=== PATIENT | female | born 1980 | race Caucasian/White ===

== ENCOUNTER 2017-05-10 21:01 | Emergency (ER) | payer MEDICAID ==
[~2017-05-10] VITALS: Ht 149.9 cm; Wt 52.0 kg
[~2017-05-10 21:01] MED LIST: ACET-890 PO; CARB100O PEG; DIVA125T9 PEG; HYDR473S49 PEG; LORA0.5T PO
[2017-05-10] MEDS ORDERED: ondansetron/PF 4mg/2ml inj IV ONE (21:25)
[2017-05-10] MEDS ORDERED: LORazepam 2 mg/ml vial IV ONE (21:25)
[2017-05-10] MEDS ORDERED: levetiracetam inj 1,000 MG in normal saline 100ml IV soln 90 ML IV STA (21:50)
[2017-05-10] MEDS ORDERED: LEVOCARNITINE IV STA (21:52)
[2017-05-10] MEDS ORDERED: NORMAL SALINE IV STA (21:52)
[2017-05-10] MEDS ORDERED: lactulose 20gm/30ml cup PO ONE (21:55)
[2017-05-10 22:23] LABS: BASOPHILS # (AUTO) 0.1 X10'3 (0-0.2); BASOPHILS % (AUTO) 1.2 % (0-1); EOSINOPHILS # (AUTO) 0.1 X10'3 (0-0.9); EOSINOPHILS % (AUTO) 1.7 % (0-6); HEMATOCRIT 38.2 % (35.0-45.0); HEMOGLOBIN 13.4 g/dl (12.0-16.0); LYMPHOCYTES % (AUTO) 42.4 % (21-51); MEAN CORPUSCULAR HEMOGLOBIN 32.2 PG (27.0-31.0); MEAN CORPUSCULAR HGB CONC 35.1 % (33.0-36.5); MEAN CORPUSCULAR VOLUME 91.8 FL (78-98); MEAN PLATELET VOLUME 9.1 FL (7.4-10.4); MONOCYTES # (AUTO) 0.5 X10'3 (0-0.9); MONOCYTES % (AUTO) 10.9 % (2-12); NEUTROPHILS # (AUTO) 2.1 X10'3 (1.8-7.7); NEUTROPHILS % (AUTO) 43.8 % (42-75); PLATELET COUNT 197 X10'3 (140-440); RED BLOOD COUNT 4.16 X10'6 (4.20-5.60); RED CELL DISTRIBUTION WIDTH 13.6 % (11.5-14.5); WHITE BLOOD COUNT 4.7 X10'3 (4.5-11.0)
[2017-05-10] MEDS ORDERED: levetiracetam 100mg/ml inj IV ONE (22:28)
[2017-05-10] MEDS ORDERED: LEVOCARNITINE 200 MG/ML IV ONE ×2 (22:29→22:37)
[2017-05-10 22:40] LABS: PROTHROMBIN TIME 10.7 SECONDS (9.0-12.0)
[2017-05-10 22:41] LABS: ALANINE AMINOTRANSFERASE 23 U/L (12-78); ALBUMIN 2.6 G/DL (3.4-5.0); ALBUMIN/GLOBULIN RATIO 0.7 (1.1-1.5); ALKALINE PHOSPHATASE 76 IU/L (46-116); ANION GAP 4 (8-16); ASPARTATE AMINO TRANSFERASE 24 U/L (10-37); BILIRUBIN,TOTAL 0.2 MG/DL (0.1-1.0); BLOOD UREA NITROGEN 12 MG/DL (7-18); BUN/CREATININE RATIO 21.8 (6.6-38.0); CALCIUM 8.3 MG/DL (8.5-10.1); CHLORIDE 99 MMOL/L (99-107); CREATININE 0.55 MG/DL (0.40-0.90); GLUCOSE 110 MG/DL (70-104); MAGNESIUM 2.1 MG/DL (1.5-2.4); POTASSIUM 4.4 MMOL/L (3.5-5.1); SODIUM 134 MMOL/L (135-145); TOTAL PROTEIN 6.4 G/DL (6.4-8.2); eGFR > 90 ML/MIN
[2017-05-11] MEDS ORDERED: NORMAL SALINE IV SCH ×2
[2017-05-11] MEDS ORDERED: LEVOCARNITINE IV SCH ×2
[2017-05-11] MEDS ORDERED: NS IV ONE (02:30)
[2017-05-11] MEDS ORDERED: VALPROATE SODIUM IV ONE (02:30)
[2017-05-11 02:36] LABS: VALPROATE 79 UG/ML (50-100)
[2017-05-11] MEDS ORDERED: ONDA4TAB12 PO (03:33)
[2017-05-11 03:36] VITALS: BP 104/73
== END 2017-05-11 03:39 | disposition home or self-care (01) ==
LOC: ER 21:02
DX: R11.2 Nausea with vomiting, unspecified (principal); R56.9 Unspecified convulsions; Z99.3 Dependence on wheelchair; Z88.0 Allergy status to penicillin; Z79.899 Other long term (current) drug therapy
CPT/HCPCS: 36415; 71045; 80053; 80164; 82140; 83735; 85025; 85610; 93005; 96365; 96367; 96368; 96375; 99285; J1953; J2060; J2405; J7030

== ENCOUNTER 2018-01-12 11:19 | Outpatient (CLI) | payer MEDICAID ==
[~2018-01-12 11:19] MED LIST changes: +ONDA4TAB12 PO
== END 2018-01-12 23:59 | disposition home or self-care (01) ==
LOC: RAD 11:19
PROVIDERS: ATTEND Psychiatry & Neurology Neurology
DX: G40.909 Epilepsy, unspecified, not intractable, without status epilepticus (principal); R94.31 Abnormal electrocardiogram [ECG] [EKG]
CPT/HCPCS: 95816

== ENCOUNTER 2018-05-27 12:19 | Outpatient (CLI) | payer MEDICAID | END 2018-05-27 23:59 | disposition home or self-care (01) | LOC: RAD 12:19 | PROVIDERS: ATTEND Psychiatry & Neurology Neurology | DX: R13.12 Dysphagia, oropharyngeal phase (principal) | CPT/HCPCS: 74230 ==

== ENCOUNTER 2018-06-23 09:20 | Emergency (ER) | payer MEDICAID ==
[~2018-06-23] VITALS: Ht 149.9 cm; Wt 52.7 kg
[2018-06-23 10:12] LABS: BASOPHILS % (AUTO) 0.5 % (0-1); EOSINOPHILS # (AUTO) 0.1 X10'3 (0-0.9); EOSINOPHILS % (AUTO) 1.6 % (0-6); HEMATOCRIT 35.7 % (35.0-45.0); HEMOGLOBIN 12.2 g/dl (12.0-16.0); LYMPHOCYTES # (AUTO) 1.8 X10'3 (1.1-4.8); LYMPHOCYTES % (AUTO) 29.8 % (21-51); MEAN CORPUSCULAR HEMOGLOBIN 31.4 PG (27.0-31.0); MEAN CORPUSCULAR HGB CONC 34.3 g/dL (33.0-36.5); MEAN CORPUSCULAR VOLUME 91.7 FL (78-98); MEAN PLATELET VOLUME 8.4 FL (7.4-10.4); MONOCYTES # (AUTO) 0.8 X10'3 (0-0.9); MONOCYTES % (AUTO) 12.7 % (2-12); NEUTROPHILS # (AUTO) 3.4 X10'3 (1.8-7.7); NEUTROPHILS % (AUTO) 55.4 % (42-75); PLATELET COUNT 202 X10'3 (140-440); RED BLOOD COUNT 3.89 X10'6 (4.20-5.60); RED CELL DISTRIBUTION WIDTH 13.5 % (11.5-14.5); WHITE BLOOD COUNT 6.1 X10'3 (4.5-11.0)
[2018-06-23 10:20] LABS: ALANINE AMINOTRANSFERASE 14 U/L (12-78); ALBUMIN 2.2 G/DL (3.4-5.0); ALBUMIN/GLOBULIN RATIO 0.7 (1.1-1.5); ALKALINE PHOSPHATASE 67 IU/L (46-116); ANION GAP 6 (8-16); ASPARTATE AMINO TRANSFERASE 26 U/L (10-37); BILIRUBIN,TOTAL 0.2 MG/DL (0.1-1.0); BLOOD UREA NITROGEN 6 MG/DL (7-18); CALCIUM 7.6 MG/DL (8.5-10.1); CHLORIDE 101 MMOL/L (99-107); GLUCOSE 106 MG/DL (70-104); POTASSIUM 3.9 MMOL/L (3.5-5.1); SODIUM 132 MMOL/L (135-145); TOTAL CARBON DIOXIDE 25.1 MMOL/L (24-32); TOTAL PROTEIN 5.5 G/DL (6.4-8.2); eGFR > 90 ML/MIN
[2018-06-23 10:22] LABS: CARBAMAZEPINE (TEGRETOL) 14.9 UG/ML (4.0-12.0); VALPROATE 84 UG/ML (50-100)
[2018-06-23 10:45] LABS: CLARITY,URINE CLEAR (Clear); COLOR,URINE YELLOW (Yellow); GLUCOSE, URINE NEGATIVE (Neg); KETONES,URINE NEGATIVE (Neg); LEUKOCYTE ESTERASE ,URINE NEGATIVE (Neg); NITRITES, URINE NEGATIVE (Neg); OCCULT BLOOD,URINE NEGATIVE (Neg); PROTEIN,URINE NEGATIVE (Neg); UROBILINOGEN,URINE 0.2 E.U/dL (0.2-1.0)
[2018-06-23 10:46] LABS: UA COLLECTION TYPE STRAIGHT CATH
[2018-06-23] MEDS ORDERED: LORazepam 2 mg/ml vial IV ONE (11:25)
[2018-06-23] MEDS ORDERED: normal saline 500ml IV soln 1,000 ML IV ONE (12:55)
--- NOTE | 2018-06-23 13:07 | NUR ---
pt's bp 75/54, consulted dr flores, verbal order for 500 ml bolus. will recheck bp after bolus.
--- NOTE | 2018-06-23 13:37 | NUR ---
BP UP TO 110/47 AFTER 500 ML NS BOLUS
[2018-06-23 15:35] VITALS: BP 94/54
== END 2018-06-23 15:36 | disposition home or self-care (01) ==
LOC: ER 09:20
DX: G40.909 Epilepsy, unspecified, not intractable, without status epilepticus (principal); Z88.0 Allergy status to penicillin; Z79.899 Other long term (current) drug therapy
CPT/HCPCS: 36415; 71045; 80053; 80156; 80164; 81003; 82140; 83605; 85025; 87040; 93005; 95816; 96374; 99284; J2060; J7030

== ENCOUNTER 2018-12-14 04:38 | Outpatient (CLI) | payer MEDICAID | END 2018-12-14 23:59 | disposition home or self-care (01) | LOC: DIABETIC 04:38 | PROVIDERS: ATTEND Family Medicine | DX: K11.7 Disturbances of salivary secretion (principal) | CPT/HCPCS: 97802 ==